=== PATIENT | male | born 1995 | race Caucasian/White ===

== ENCOUNTER 2016-06-19 20:42 | Emergency (ER) | payer OTHER ==
[~2016-06-19] VITALS: Ht 175.3 cm; Wt 70.5 kg
[2016-06-19 21:43] LABS: INFLUENZA B NEGATIVE
[2016-06-19] MEDS ORDERED: LEVAQUIN 750MG750 M1 PO (22:25)
[2016-06-19] MEDS ORDERED: TUSS PO (22:25)
[2016-06-19 22:40] VITALS: BP 125/75; PULSE 98; TEMP 100.4
== END 2016-06-19 22:42 | disposition home or self-care (01) ==
LOC: COL.ER 20:42
PROVIDERS: Emergency Medicine
DX: J18.9 Pneumonia, unspecified organism (principal); Z87.891 Personal history of nicotine dependence